=== PATIENT | female | born 1975 | race Caucasian/White ===

== ENCOUNTER 2024-12-29 07:21 | Emergency (ER) | payer BC, SELFPAY ==
[2024-12-29 07:22] VITALS: BMI 26.6
--- NOTE | 2024-12-29 07:25 | PD.EDADULT ---
ED General RME/HPI General Chief complaint: Neuro Symptoms/Deficit Stated complaint: DIZZINESS, NAUSEA AND ROOM SPINNING Time Seen by Provider: 12/29/24 07:25 Arrival date/time: 12/29/24 07:21 RME / HPI RME / HPI narrative: Ashley Bey is a 49 y/o female with PMHx of gastric sleeve (7 years ago) who comes in for evaluation of dizziness with associated nausea that started at 6 AM today, has never happened to her before, with no associated headache, and did not take anything to help with symptoms. Patient reports that she started to feel dizzy upon waking up today, is unsure if exertion makes it worse, however says that she did feel like she was going to pass out. She did not vomit. She says no one around her is feeling like this. She says sometimes she has migraines. She has she has been drinking fluids and eating okay, however can drink more. She says she usually eats about 1 meal a day. She does endorse that she is on Wegovy right now. She says she gets her vitamins checked routinely and was recently taking vitamin D and currently takes multivitamin. Says she has lost about 12 pounds of being on Wegovy for about a month and a half. She denies any history of stroke. She says she does not get ear infections, and denies any pain, trauma to her ear. She says she gets urine infections once in a while. She denies any recent travel or recent sick contacts. She does not smoke, use any drugs or drink currently. She denies any tinnitus, ear pain, cough, chest pain, shortness of breath. No other complaints at this time. Related Data Previous Rx's ?Medication ?Instructions ?Recorded cyclobenzaprine 10 mg tablet 10 mg PO Q8H PRN muscle spasm #20 02/08/18 tabs ibuprofen 600 mg tablet 600 mg PO Q6H #60 tabs 02/08/18 meclizine 25 mg tablet 25 mg PO BID PRN dizziness or 12/29/24 vertigo #14 tabs ondansetron 4 mg disintegrating 4 mg PO Q8H PRN nausea and 12/29/24 tablet vomiting 2 weeks #14 tabs Allergies Allergy/AdvReac Type Severity Reaction Status Date / Time meloxicam Allergy Unknown RASH, Verified 12/29/24 07:24 SWELLING, ITCHING Review of Systems Review of Systems Narrative Review of Systems: 12 point ROS reviewed and is otherwise negative unless stated directly in the HPI ED Exam Narrative Physical exam: General: AAOx3, NAD, HEENT: Moist mucous membranes, conjunctiva clear, EOMI, PERRLA, TM visualized bilat, no perforation, Ear canal free of erythema bilat Cardiovascular: S1, S2, radial pulses +2 bilat, RRR Pulmonary: CTAB bilat no cough, no wheezing GI: No tenderness to light or deep palpitation, no guarding, rigidity, rebound tenderness or distension Extremities: No presence of trace or pitting edema in lower extremities bilaterally, dorsalis pedis pulses +2 bilaterally Neuro: AAOx3, no focal motor or sensory deficits in the UE or LE bilat, +brittany manuever Psych: Good judgement, thought and behavior Course Quality Measures none Orders Category Date Time Status Orthostatic Vitals NOW Care 12/29/24 07:39 Active Meclizine HCl [Antivert] Med 12/29/24 07:39 Discontinued 25 mg PO X1 ONE Ondansetron Odt [Zofran Odt] Med 12/29/24 07:39 Discontinued 4 mg PO X1 ONE Vital Signs Vital signs: Vital Signs Temperature 97.7 F 12/29/24 07:31 Pulse Rate 86 12/29/24 07:31 Respiratory Rate 18 12/29/24 07:31 Blood Pressure 112/77 12/29/24 07:31 Pulse Oximetry (%) 99 12/29/24 07:31 Oxygen Delivery Method Room Air 12/29/24 07:31 Discharge Plan Plan Patient Disposition: HOME (Self Care) Patient condition on transfer: Stable Prescriptions/Referrals Prescriptions/Med Rec: New ondansetron 4 mg tablet,disintegrating 4 mg PO Q8H PRN (Reason: nausea and vomiting) 14 Days Qty: 14 0RF Rx Instructions: Disintegrate one tablet by mouth as needed for nausea meclizine 25 mg tablet 25 mg PO BID PRN (Reason: dizziness or vertigo) Qty: 14 0RF Rx Instructions: Take one tablet by mouth up to twice a day as needed for dizziness No Action cyclobenzaprine 10 mg tablet 10 mg PO Q8H PRN (Reason: muscle spasm) Qty: 20 0RF ibuprofen 600 mg tablet 600 mg PO Q6H Qty: 60 0RF Referrals: JOSIANE GAYTAN [Primary Care Provider] - In 1 week Problem List Clinical Impression: Vertigo Patient/Caregiver Discharge Instructions Education Materials: Vertigo Medicine Tx, Vertigo Staying Safe Additional Instructions: Discharge instructions Follow-up with your PCP within 1 week Take your medicines as prescribed, Zofran and meclizine. Speak with your primary care doctor in regards to further workup of your vertigo, and consider an ENT referral as well. We continue to encourage you to continue with multivitamins and oral hydration. We have informed you about the Brittany maneuver and this can be something searched online as well. There is information on it in regards to the packets we discharged you with as well. Return to ED if your symptoms worsen or return Print Language: [place]raini Stand Alone Forms: Nancy Award Info., Patient Portal Info Letter MDM Narrative MDM hospital course (for use when minimal MDM required): 0744: Patient examined, performed Brittany maneuver and it was positive for worsening dizziness on left side in addition to nausea. Will administer antiemetic in addition to meclizine for symptomatic control. Will also order orthostatic vitals due to concern for orthostatic hypotension. No labs required at this time, however will order U/A and UDS for further workup. 0826: Pt continues to improve with Zofran and meclizine. Will send these medicines outpatient as well. Patient would likely benefit from speaking with her primary care doctor in regards to further workup with BPPV, and may want to be referred to an ENT for further evaluation of BPPV. She can use the medicine Zofran and meclizine as needed. Will continue to encourage her for oral hydration. Orthostatics reviewed and are negative. Medication Administration(s) Medication Administration History Discontinued Medications Meclizine HCl (Meclizine Hcl 25 Mg Tablet) 25 mg PO X1 ONE Stop: 12/29/24 07:40 Last Admin: 12/29/24 07:50 Dose: 25 mg Documented By: DO Ondansetron HCl (Ondansetron Odt 4 Mg Tabrap) 4 mg PO X1 ONE; Protocol Stop: 12/29/24 07:40 Last Admin: 12/29/24 07:51 Dose: 4 mg Documented By: DO Diagnosis Diagnoses ruled out and/or further discussions: BPPV, Ear Infection, orthostatic hypotension, CVA
[2024-12-29 07:31] VITALS: BP 112/77; PULSE 86; RESP 18; TEMP 36.5; O2SAT 99
[2024-12-29 07:41] VITALS: BP 102/74; BP 91/68; BP 99/67; PULSE 75; PULSE 77; PULSE 91
[2024-12-29] MEDS: MECLIZINE HCL 25 MG TABLET PO (07:50)
[2024-12-29] MEDS: ONDANSETRON ODT 4 MG TABRAP PO (07:51)
== END 2024-12-29 08:40 | disposition home or self-care (01) ==
PROVIDERS: Emergency Provider Family Medicine; PCP Nurse Practitioner Family
DX: R42 Dizziness and giddiness (principal); R11.2 Nausea with vomiting, unspecified
CPT/HCPCS: 80307; 81001; 99283; Q0162; A9270